=== PATIENT | male | born 1990 | race African-American/Black ===

== ENCOUNTER 2023-03-01 16:07 | Emergency (ER) | payer OTHER ==
[~2023-03-01] VITALS: Ht 180.3 cm; Wt 91.2 kg
[2023-03-01] MEDS ORDERED: KETOROLAC TROMETHAMINE INJ 30 MG/ML VIAL ONE (17:19)
[2023-03-01] MEDS ORDERED: KETOROLAC TROMETHAMINE INJ 30 MG/ML VIAL IM ONE (17:30)
[2023-03-01] MEDS ORDERED: HYDR-3972 PO (18:52)
[2023-03-01] MEDS ORDERED: ACET-2605 PO (18:52)
[2023-03-01] MEDS ORDERED: IBUP-1957 PO (18:52)
[2023-03-01 19:04] VITALS: BP 122/78; TEMP 98; O2SAT 98
[2023-03-02] MEDS ORDERED: HYDR-3980 PO (13:27)
== END 2023-03-01 19:06 | disposition home or self-care (01) ==
LOC: ER 16:07
DX: S02.69XA Fracture of mandible of other specified site, initial encounter for closed fracture (principal); S60.511A Abrasion of right hand, initial encounter; S50.312A Abrasion of left elbow, initial encounter; Z60.2 Problems related to living alone; Y04.0XXA Assault by unarmed brawl or fight, initial encounter; Y93.89 Activity, other specified; Y92.89 Other specified places as the place of occurrence of the external cause; Y99.8 Other external cause status
CPT/HCPCS: 99283; 96372; 70150; J1885; A6403

== ENCOUNTER 2024-09-23 04:13 | Emergency (ER) | payer MEDICAID, OTHER ==
[~2024-09-23] VITALS: Ht 180.3 cm; Wt 91.2 kg
[~2024-09-23 04:13] MED LIST: ACET-2605 PO; HYDR-3980 PO; IBUP-1957 PO
[2024-09-23 05:23] VITALS: BP 158/108; TEMP 98.4
[2024-09-23] MEDS ORDERED: AMOXICILLIN TRIHYDRATE 250 MG CAPSULE ONE (05:54)
[2024-09-23] MEDS ORDERED: ACETAMINOPHEN ES 500 MG TABLET ONE (05:54)
[2024-09-23] MEDS ORDERED: IBUPROFEN 400 MG TABLET ONE (05:55)
[2024-09-23] MEDS: AMOXICILLIN TRIHYDRATE 500 MG CAPSULE PO ONE (05:57)
[2024-09-23] MEDS: IBUPROFEN 400 MG TABLET PO ONE (05:57)
[2024-09-23] MEDS ORDERED: AMOX500T2 PO (05:57)
[2024-09-23] MEDS ORDERED: ACET-73 PO (05:57)
[2024-09-23] MEDS: ACETAMINOPHEN ES 500 MG TABLET PO ONE (05:57)
[2024-09-23] MEDS ORDERED: IBUP-1490 PO (05:57)
[2024-09-23 06:08] VITALS: O2SAT 100
== END 2024-09-23 06:08 | disposition home or self-care (01) ==
LOC: ER 04:17
DX: K08.89 Other specified disorders of teeth and supporting structures (principal); Z60.2 Problems related to living alone